=== PATIENT | female | born 1945 | race African-American/Black ===

== ENCOUNTER → 2018-07-25 | Day surgery (SDC) | payer MEDICARE ==
[2018-07-19 11:27] LABS: BASOPHILS # (AUTO) 0.1 (0.0-0.1); BASOPHILS % 0.8 % (0.0-1.0); EOSINOPHILS # (AUTO) 0.2 (0.0-0.4); EOSINOPHILS % 2.7 % (0.0-6.0); HEMATOCRIT 34.2 % (34.2-44.1); HEMOGLOBIN 11.4 g/dL (12.0-16.0); LYMPHOCYTES # (AUTO) 2.5 (1.0-3.2); LYMPHOCYTES % 37.2 % (18.0-39.1); MEAN CORPUSCULAR HEMOGLOBIN 29.4 pg (28-32); MEAN CORPUSCULAR HGB CONC 33.3 g/dL (31-35); MEAN CORPUSCULAR VOLUME 88.1 fL (81-99); MONOCYTES # (AUTO) 0.7 (0.2-0.8); MONOCYTES % 10.1 % (4.4-11.3); NEUTROPHILS # (AUTO) 3.3 (2.1-6.9); PLATELET COUNT 193 x10e3/uL (140-360); RED BLOOD COUNT 3.88 x10e6/uL (3.6-5.1); RED CELL DISTRIBUTION WIDTH 13.2 % (11.7-14.4)
[2018-07-19 11:41] LABS: ANION GAP 10.9 mmol/L (8-16); BLOOD UREA NITROGEN 12 mg/dL (7-26); BUN/CREATININE RATIO 14 (6-25); CARBON DIOXIDE 28 mmol/L (22-29); CHLORIDE 102 mmol/L (98-107); CREATININE, SERUM 0.85 mg/dL (0.57-1.11); EST GLOMERULAR FILTRATION RATE > 60 ML/MIN (60-); GLUCOSE 77 mg/dL (74-118); POTASSIUM 3.9 mmol/L (3.5-5.1); SODIUM 137 mmol/L (136-145)
--- NOTE | 2018-07-19 13:07 | Diagnostic Imaging Report ---
Chest, 2 views, 07/19/2018. History: Preop, left foot surgery. Comparison: None available. Findings: The cardiac silhouette is mildly enlarged but the pulmonary vasculature is within normal limits. The lungs are clear without evidence of consolidation or pleural effusion. Mild degenerative changes are present throughout the thoracic spine. There are no acute osseous or soft tissue abnormalities. Impression: Mild cardiomegaly without acute pulmonary abnormality. Signed by: Scooby Lebron on 07/19/2018 1:03 PM
[~2018-07-25] MED LIST: BETAMETHASONE DISODIUM PHOS 6 MG/ML VIAL ONE; BUPIVACAINE HCL 0.5% INJ 30 ML VIAL INJ ONE; CEFAZOLIN SOD 1 GM/NS 50ML 50 ML IV ONE; CEFAZOLIN SOD 2 GM/D5W 50ML 0 ML IV ONE; DEXAMETHASONE SOD PHOS INJ 4 MG/ML VIAL ONE; DICLOFENAC PO; FENTANYL CITRATE/PF 100MCG/2 ML INJ ONE; GABAPENTIN300 MG PO; KETOROLAC TROMETHAMINE 30 MG/ML VIAL ONE; LIDOCAINE HCL 1% 30ML-PF VIAL ONE; LIDOCAINE HCL 2% LOCAL INJ 5 ML SDV VIAL INJ ONE; LOVASTATIN20 MG PO; MIDAZOLAM HCL 2 MG/2 ML VIAL ONE; MUPIROCIN 2% OINT 22 GM TUBE ONE; OMEPRAZOLE40 MG PO; ONDANSETRON HCL INJ 2MG/ML 2ML 2 MG/ML VIAL ONE; PROPOFOL IV EMULSION 10 MG/ML 20 ML VIAL ONE; SEVOFLURANE INHAL SOLN 250 ML PEN BTL ONE; TRIAMTERENE-HCTZ1 EA PO; VIT D3 PO
--- OUTSIDE RECORDS SUMMARY | 2018-07-25 05:18 | XMS REPORT ---
Author Author [facility] Address Unknown Phone Unavailable Care Team Providers Care Direct Entry Midwife Name Role Phone ASA ASHER Unavailable Unavailable Problems This patient has no known problems. Allergies, Adverse Reactions, Alerts This patient has no known allergies or adverse reactions. Medications This patient has no known medications. Results Test Description Test Time Test Comments Text Results Atomic Results Result Comments CHEST 2 VIEWS 2018-07-19 13:02:00 [facility] [address] [place] [address] Patient Name: KEMI RUELAS MR #: [id number] : 1945 Age/Sex: 73/F Req #: [id number] Adm Physician: Ordered by: ASA ASHER DPM Report #: [id number] Location: OR Room/Bed: Procedure: [id number] DX/CHEST 2 VIEWS Exam Date: 07/19/18 Exam Time: 1124 REPORT STATUS: Signed Chest, 2 views, 07/19/2018. History: Preop, left foot surgery. Comparison: None available. Findings: The cardiac silhouette is mildly enlarged but the pulmonary vasculature is within normal limits. The lungs are clear without evidence of consolidation or pleural effusion. Mild degenerative changes are present throughout the thoracic spine. There are no acute osseous or soft tissue abnormalities. Impression: Mild cardiomegaly without acute pulmonary abnormality. Signed by: Jamee Lebron on 07/19/2018 1:03 PM Dictated By: JAMEE LEBRON MD 1307 Transcribed By: MITCH on 07/19/18 1308 COPY TO: ASA ASHER DPM
--- NOTE | 2018-07-25 09:43 | Diagnostic Imaging Report ---
Exam: Left foot 2 views History: Postoperative from bunionectomy Comparison: None. Findings: See impression Impression: Postsurgical changes of the left foot include osteotomy at the base of the first proximal phalanx with surgical pins traversing the phalanges and distal metatarsal of the first ray and the phalanges of the fourth ray. Refer to operative report for full details. Signed by: Dr. Mejia Funes M.D. on 07/25/2018 9:39 AM
[2018-07-25 09:55] VITALS: BP 144/84
--- NOTE | 2018-07-25 14:54 | Operative Report ---
DATE OF PROCEDURE: 07/25/2018 SURGEON: Ceferino Bhakta DPM PREOPERATIVE DIAGNOSES: 1. Painful hallux valgus deformity, left foot. 2. Painful contracted hammertoe, 4th digit, left. 3. Painful contracted hammertoe, 5th digit, left. 4. Painful tailor's bunion, left foot. POSTOPERATIVE DIAGNOSES: 1. Painful hallux valgus deformity, left foot. 2. Painful contracted hammertoe, 4th digit, left. 3. Painful contracted hammertoe, 5th digit, left. 4. Painful tailor's bunion, left foot. OPERATIVE PROCEDURE: 1. Bustamante bunionectomy with K-wire fixation, left foot. 2. Arthroplasty of 4th digit with K-wire fixation. 3. Arthroplasty of 5th digit. 4. Tailor's bunionectomy. 5. Intraoperative use of fluoroscopy. 6. Trigger point shot of cortisone. 7. Application of posterior splint. ANESTHESIA: General. HEMOSTASIS: Pneumatic thigh tourniquet at 350 mmHg. PROCEDURE IN DETAIL: The patient was taken into the operating room and placed on the operating room table in a supine position. Following induction of general anesthesia by the anesthesiologist, Webril wraps were placed on the patient's left thigh followed by application of left thigh tourniquet. The left lower extremity was then prepped and draped in the usual aseptic manner and the following procedure was then performed. Procedure #1: Bustamante bunionectomy with K-wire fixation of left foot. Attention was directed to the dorsal medial aspect of the 1st metatarsophalangeal joint of the left foot, where a 6-7 cm linear incision was performed. Incision was deepened down to the joint capsule. 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 Via the use of an oscillating saw, the dorsomedial exostosis of the 1st metatarsal head was resected, 1 cm of the base of the proximal phalanx was also resected to allow for proper range of motion to the 1st metatarsophalangeal joint. All areas were then copiously flushed with saline and the capsule was then interposed to the 1st metatarsophalangeal joint utilizing 2-0 Vicryl, was secured in place to allow for range of motion to the 1st MPJ with no [id number] contact. A 0.062 K-wire was then inserted across the metatarsophalangeal joint to achieve proper anatomical reduction. Procedure #2 and #3: Arthroplasty of 4th and 5th digits with K-wire fixation of 4th. Attention was then directed to the dorsal aspect of the above-mentioned toes, where a 3 cm linear incision was performed. Incision was deepened down to the joint capsule. Transverse capsulotomy was then performed exposing the head of the proximal phalanx. Via the use of an oscillating saw, head of the proximal phalanges were excised from the operation site in toto, 4th toe was still noted to be contracted, so a 0.045 K-wire was introduced up to metatarsophalangeal joint to achieve proper anatomical reduction. Procedure #4: Tailor's bunionectomy of left foot. Attention was then directed to the dorsal lateral aspect of the 5th metatarsophalangeal joint, where a 4 cm linear incision was performed. Incision was deepened down to the joint capsule. Longitudinal capsulotomy was then performed exposing the dorsal lateral exostosis of the 5th metatarsal head. Via the use of an oscillating saw and rotating bur, dorsal lateral exostosis was excised. All rough and bony edges were rasped smooth and all areas were then copiously flushed with antibiotic solution and suction. Procedure #5: Intraoperative use of fluoroscopy was then used to make sure proper alignment and fixation was achieved. Closure was then obtained utilizing 3-0 Vicryl, 4-0 Vicryl, and 4-0 nylon for capsule, subcutaneous tissue, and skin respectively. Procedure #6: Trigger point shot of cortisone was then given to the 1st and 4th interspace of the left foot for the inflammation. Then, approximately 10 mL of 0.5% plain Marcaine plus 10 mL of 1% Xylocaine plain were used to achieve local anesthesia of above-mentioned surgical area. Sterile dressing was applied. Upon release of the thigh tourniquet, blood hyperemia was noted immediate to all digits of the patient's left foot. Procedure #7: Application of posterior splint. A properly placed posterior splint was then applied keeping the foot in 90 degrees with respect to the leg to try and prevent any postop complications. The patient was then transferred from the OR to recovery room with vital signs stable and neurovascular status intact. No intraoperative complications were encountered. Blood loss from the surgery was minimal. The patient to remain nonweightbearing with the aid of crutches and keep her foot elevated. DAE Cueva/ERLINDA /[id number]
== END | disposition home or self-care (01) ==
LOC: OR 05:16
PROVIDERS: ATTEND Podiatrist Foot Surgery
DX: M20.12 Hallux valgus (acquired), left foot (principal); M20.42 Other hammer toe(s) (acquired), left foot; M21.622 Bunionette of left foot; I10 Essential (primary) hypertension; K21.9 Gastro-esophageal reflux disease without esophagitis; Z01.810 Encounter for preprocedural cardiovascular examination; Z01.812 Encounter for preprocedural laboratory examination; Z01.818 Encounter for other preprocedural examination
CPT/HCPCS: 28110; 28285 ×2; 28292; 36415; 71046; 73620; 80048; 85025; 93005; C1713; J0690; J0720; J1100; J1885; J2001 ×2; J2250; J2405; J2704

== ENCOUNTER → 2018-11-26 | Day surgery (SDC) | payer MEDICARE ==
[2018-11-23 11:27] LABS: BASOPHILS # (AUTO) 0.1 (0.0-0.1); BASOPHILS % 0.9 % (0.0-1.0); EOSINOPHILS # (AUTO) 0.1 (0.0-0.4); EOSINOPHILS % 1.8 % (0.0-6.0); HEMATOCRIT 35.6 % (34.2-44.1); HEMOGLOBIN 11.8 g/dL (12.0-16.0); LYMPHOCYTES # (AUTO) 2.5 (1.0-3.2); MEAN CORPUSCULAR HEMOGLOBIN 29.3 pg (28-32); MEAN CORPUSCULAR HGB CONC 33.1 g/dL (31-35); MEAN CORPUSCULAR VOLUME 88.3 fL (81-99); MONOCYTES # (AUTO) 0.6 (0.2-0.8); MONOCYTES % 9.1 % (4.4-11.3); NEUTROPHILS # (AUTO) 3.4 (2.1-6.9); NEUTROPHILS % 50.8 % (38.7-80.0); PLATELET COUNT 222 x10e3/uL (140-360); RED BLOOD COUNT 4.03 x10e6/uL (3.6-5.1); RED CELL DISTRIBUTION WIDTH 13.1 % (11.7-14.4)
[2018-11-23 11:54] LABS: ANION GAP 12.7 mmol/L (8-16); BLOOD UREA NITROGEN 14 mg/dL (7-26); BUN/CREATININE RATIO 15 (6-25); CALCIUM 10.5 mg/dL (8.4-10.2); CARBON DIOXIDE 29 mmol/L (22-29); CHLORIDE 98 mmol/L (98-107); CREATININE, SERUM 0.96 mg/dL (0.57-1.11); EST GLOMERULAR FILTRATION RATE > 60 ML/MIN (60-); GLUCOSE 92 mg/dL (74-118); POTASSIUM 3.7 mmol/L (3.5-5.1); SODIUM 136 mmol/L (136-145)
[~2018-11-26] MED LIST changes: +ALIGN4 MG PO; -CEFAZOLIN SOD 2 GM/D5W 50ML 0 ML IV ONE; +HYDRALAZINE HCL 20 MG/ML VIAL ONE; +LIDOCAINE HCL 1% 2 ML AMP ONE; -LIDOCAINE HCL 1% 30ML-PF VIAL ONE; +LIDOCAINE HCL 1% LOCAL INJ 20 ML VIAL ONE
[2018-11-26 09:35] VITALS: BP 154/80
--- NOTE | 2018-11-26 10:01 | Diagnostic Imaging Report ---
EXAMINATION: FOOT RIGHT AP LAT INDICATION: Postoperative COMPARISON: None FINDINGS: Portable AP and lateral images of the right foot demonstrate postoperative findings of osteotomy and K wire fixation across the first interphalangeal and MTP joints and across the PIP and DIP joints of the fourth digit. Alignment appears anatomic. No unexpected fracture. Mild diffuse soft tissue swelling. Mild Achilles enthesopathy. Overlying gauze material obscures fine bony detail. IMPRESSION: Postoperative findings as above. Signed by: Benoit Torres MD on 11/26/2018 9:57 AM
--- NOTE | 2018-11-26 16:38 | Operative Report ---
DATE OF PROCEDURE: 11/26/2018 SURGEON: Ceferino Bhakta DPM PREOPERATIVE DIAGNOSES: 1. Painful hallux valgus deformity, right foot. 2. Painful contracted hammertoe 4th digit, right. 3. Painful contracted hammertoe 5th digit, right. 4. Painful tailor's bunion, right foot. POSTOPERATIVE DIAGNOSIS: Confirmed. OPERATIVE PROCEDURES: 1. Bustamante bunionectomy with K-wire fixation, right foot. 2. Arthroplasty of 4th digit with K-wire fixation. 3. Arthroplasty of 5th digit. 4. Tailor's bunionectomy. 5. Intraoperative use of fluoroscopy. 6. Trigger point shot of cortisone. 7. Application of posterior splint. ANESTHESIA: General. HEMOSTASIS: Pneumatic thigh tourniquet at 350 mmHg. PROCEDURE IN DETAIL: The patient was taken into the operating room and placed on the operative table in supine position. Following induction of general anesthesia by the anesthesiologist, Webril wraps were placed on the patient's right thigh, followed by application of right thigh tourniquet. The right lower extremity was then prepped and draped in the usual aseptic manner and the following procedures were then performed. Procedure #1: Bustamante bunionectomy, right foot. Attention was directed to the dorsomedial aspect of the 1st MPJ, where a 6 to 7 cm linear incision was performed. Incision was deepened down to the joint capsule. Longitudinal capsulotomy was performed exposing the dorsomedial and dorsal exostosis of the 1st metatarsal head. Using an oscillating saw, dorsomedial and dorsal exostosis were excised from the operation site in toto. Severe arthritic noted with hallux limitus and ridges type of deformity overlying the 1st MPJ secondary to the arthritic condition. At this point, 1 cm of the proximal phalangeal base was excised from the operation site in toto. After an osteotomy was performed, all rough and bony edges were aspirated surrounding the 1st metatarsal head. A 0.062 K-wire was introduced to maintain proper surgical anatomical reduction and alignment of the right great toe in conjunction with 1st metatarsal. All areas were then copiously flushed with antibiotic solution and suction. Procedures #2 and 3: Arthroplasty of 4th and 5th digits with K-wire fixation of 4th. Attention was then directed to the dorsal aspect of the 4th and 5th toes, where a 3 cm linear incision was performed. Incision was deepened down to the joint capsule. Transverse capsulotomy was then performed exposing the head of the proximal phalanx. Via the use of an oscillating saw, head of proximal phalanxes were excised from the operation site in toto. Fourth toe was still noted to be contracted, so a 0.045 K-wire was introduced up to the metatarsophalangeal joint to achieve proper anatomical reduction. Procedure #4. Tailor's bunionectomy, right foot. Attention was then directed to the dorsal lateral aspect of the 5th MPJ, where a 6 cm linear incision was performed. Incision was deepened down to the joint capsule. A longitudinal capsulotomy was then performed exposing the dorsal lateral exostosis of the 5th metatarsal head. Via the use of the oscillating saw and rotating bur, dorsal lateral exostosis was excised from the operation site in toto and all rough and bony edges were rasped smooth. Procedure #5: Intraoperative use of fluoroscopy was then used to make sure proper alignment fixation was achieved. Closure was then obtained utilizing 3-0 Vicryl, 4-0 Vicryl, and 4-0 nylon for capsule subcutaneous tissue and skin respectively. Procedure #6: Trigger point shot of cortisone was then given to the 1st and 4th interspace of the right foot. Then, approximately 10 mL of 0.5% plain Marcaine plus 10 mL of 1% Xylocaine plain were then used to achieve local anesthesia of above-mentioned surgical area. Sterile dressing was applied. Upon release of the thigh tourniquet, blood hyperemia was noted immediate to all digits of the patient's right foot. Procedure #7. Application of posterior splint. A properly placed posterior splint was then applied keeping the foot at 90 degrees with respect to the leg to try for any type of postop complications. The patient was then transferred from the OR to recovery with vital signs stable and neurovascular status intact. No intraoperative complications were encountered. Blood loss from the surgery was minimal. The patient is to remain nonweightbearing with the aid of crutches, keep her foot elevated, and is to apply an ice pack to the ankle joint area. DAE Cueva/ERLINDA /[id number]
== END | disposition home or self-care (01) ==
LOC: OR 05:23
PROVIDERS: ATTEND Podiatrist Foot Surgery
DX: M20.11 Hallux valgus (acquired), right foot (principal); M20.41 Other hammer toe(s) (acquired), right foot; M21.621 Bunionette of right foot; M20.5X1 Other deformities of toe(s) (acquired), right foot; I10 Essential (primary) hypertension; E78.5 Hyperlipidemia, unspecified; K21.9 Gastro-esophageal reflux disease without esophagitis; Z01.810 Encounter for preprocedural cardiovascular examination; Z01.812 Encounter for preprocedural laboratory examination
CPT/HCPCS: 28110; 28285 ×2; 28292; 36415; 73620; 80048; 85025; 93005; C1713; J0360; J0690; J0720; J1100; J1885; J2001 ×3; J2250; J2405; J2704; J3010